=== PATIENT | male | born 1980 | race African-American/Black ===

== ENCOUNTER 2018-01-21 12:40 | Emergency (ER) | payer OTHER ==
[~2018-01-21] VITALS: Ht 162.6 cm; Wt 65.8 kg
== END 2018-01-21 14:15 | disposition home or self-care (01) ==
LOC: ED 12:40
DX: S01.91XA Laceration without foreign body of unspecified part of head, initial encounter (principal); W20.8XXA Other cause of strike by thrown, projected or falling object, initial encounter
CPT/HCPCS: 90471; 90715; 96372; 99283; J1885